=== PATIENT | female | born 1995 | race Hispanic/Latino ===

== ENCOUNTER 2019-12-25 11:01 | Emergency (ER) | payer OTHER, SELFPAY ==
--- NOTE | 2019-12-25 12:44 | EDPHYS ---
Physician Documentation [facility] Name: Brandy Calvo Age: 24 yrs Sex: Female : 1995 Arrival Date: 12/25/2019 Time: 11:03 Bed 16 Private MD: ED Physician Adrien Coates HPI: 12/24 11:39 This 24 yrs old Female presents to ER via Ambulatory with complaints of Sore jr8 Throat, Fever. 11:39 The patient presents with sore throat. The patient describes throat pain as constant, jr8 raw. Onset: The symptoms/episode began/occurred acutely, yesterday. Severity of symptoms: At their worst the symptoms were mild, in the emergency department the symptoms are unchanged. Modifying factors: The symptoms are alleviated by nothing, the symptoms are aggravated by swallowing. Associated signs and symptoms: Pertinent positives: earache. The patient has not experienced similar symptoms in the past. The patient has not recently seen a physician. 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 ROS: 11:39 Eyes: Negative for injury, pain, redness, and discharge, Neck: Negative for injury, jr8 pain, and swelling, Cardiovascular: Negative for chest pain, palpitations, and edema, Respiratory: Negative for shortness of breath, cough, wheezing, and pleuritic chest pain, Abdomen/GI: Negative for abdominal pain, nausea, vomiting, diarrhea, and constipation, Back: Negative for injury and pain, MS/Extremity: Negative for injury and deformity, Skin: Negative for injury, rash, and discoloration, Neuro: Negative for headache, weakness, numbness, tingling, and seizure. 11:39 ENT: Positive for ear pain, sore throat. Exam: 11:39 Eyes: Pupils equal round and reactive to light, extra-ocular motions intact. Lids and jr8 lashes normal. Conjunctiva and sclera are non-icteric and not injected. Cornea within normal limits. Periorbital areas with no swelling, redness, or edema. Neck: Trachea midline, no thyromegaly or masses palpated, and no cervical lymphadenopathy. Supple, full range of motion without nuchal rigidity, or vertebral point tenderness. No Meningismus. Cardiovascular: Regular rate and rhythm with a normal S1 and S2. No gallops, murmurs, or rubs. Normal PMI, no JVD. No pulse deficits. Respiratory: Lungs have equal breath sounds bilaterally, clear to auscultation and percussion. No rales, rhonchi or wheezes noted. No increased work of breathing, no retractions or nasal flaring. Abdomen/GI: Soft, non-tender, with normal bowel sounds. No distension or tympany. No guarding or rebound. No evidence of tenderness throughout. Back: No spinal tenderness. No costovertebral tenderness. Full range of motion. Skin: Warm, dry with normal turgor. Normal color with no rashes, no lesions, and no evidence of cellulitis. MS/ Extremity: Pulses equal, no cyanosis. Neurovascular intact. Full, normal range of motion. Neuro: Awake and alert, GCS 15, oriented to person, place, time, and situation. Cranial nerves II-XII grossly intact. Motor strength 5/5 in all extremities. Sensory grossly intact. Cerebellar exam normal. Normal gait. 11:39 ENT: External ear(s): are unremarkable, Ear canal(s): are normal, clear, TM's: erythema, that is mild, on the right, Examination of the other ear shows no obvious abnormality, Nose: External nose: no obvious acute abnormality, Nasal septum: is midline, Nasal mucosa: normal, Turbinates: are normal, Mouth: Lips: moist, Oral mucosa: pink and intact, moist, Gums: pink, Tongue: is moist, Posterior pharynx: Airway: patent, Tonsils: bilaterally enlarged, with erythema, with exudate, no ulcerations, Uvula: midline, non-edematous, no erythema, swelling, is not appreciated, erythema, that is mild. Vital Signs: 11:16 BP 112 / 77; Pulse 108; Resp 16; Temp 99.4(O); Pulse Ox 100% on R/A; Weight 56.7 kg; iw Height 5 ft. 2 in. (157.48 cm); Pain 5/10; 12:21 BP 112 / 78; Pulse 116; Resp 20; Temp 100.0; Pulse Ox 97% on R/A; jr10 11:16 Body Mass Index 22.86 (56.70 kg, 157.48 cm) MDM: 11:32 Patient medically screened. jr8 12:41 Data reviewed: vital signs, nurses notes, lab test result(s), and as a result, I will jr8 discharge patient. Data interpreted: Pulse oximetry: on room air is 97 %. Interpretation: normal. Counseling: I had a detailed discussion with the patient and/or guardian regarding: the historical points, exam findings, and any diagnostic results supporting the discharge/admit diagnosis, lab results, the need for outpatient follow up, a family practitioner, to return to the emergency department if symptoms worsen or persist or if there are any questions or concerns that arise at home. ED course: Negative strep and mono. No paratonsillar abscess noted. Most likely other bacteria. Will put on clinda . 12/24 11:23 Order name: Strep; Complete Time: 12:09 12/24 12:08 Order name: Throat Culture [facility] 12/24 12:09 Order name: [place] Screen Profile; Complete Time: 12:40 8 Administered Medications: 12:54 Drug: Tylenol 1000 mg Route: PO; jr10 Disposition: 17:40 Co-signature as Attending Physician, Adrien Coates MD I agree with the assessment and kdr plan of care. Disposition: 12/25/19 12:43 Discharged to Home. Impression: Acute pharyngitis due to other specified organisms. - Condition is Stable. - Discharge Instructions: Pharyngitis, Sore Throat. - Prescriptions for Clindamycin HCl 300 mg Oral Capsule - take 1 capsule by ORAL route every 6 hours for 10 days; 40 capsule. - Medication Reconciliation Form, Thank You Letter, Antibiotic Education, Prescription Opioid Use form. - Follow up: Private Physician; When: 2 - 3 days; Reason: Recheck today's complaints, Continuance of care, Re-evaluation by your physician. - Problem is new. - Symptoms have improved. Signatures: Dispatcher [employer] [facility] Adrien Coates MD MD kdr Williams, Irene, RN RN Ward Blackburn PA PA jr8 Rachana Mckeon RN RN jr10 Corrections: (The following items were deleted from the chart) 12:58 12:43 12/25/2019 12:43 Discharged to Home. Impression: Acute pharyngitis due to other jr10 specified organisms. Condition is Stable. Forms are Medication Reconciliation Form, Thank You Letter, Antibiotic Education, Prescription Opioid Use. Follow up: Private Physician; When: 2 - 3 days; Reason: Recheck today's complaints, Continuance of care, Re-evaluation by your physician. Problem is new. Symptoms have improved. jr8
--- NOTE | 2019-12-25 12:44 | ER ---
Nurse's Notes [facility] Name: Brandy Calvo Age: 24 yrs Sex: Female : 1995 Arrival Date: 12/25/2019 Time: 11:03 Bed 16 Private MD: Diagnosis: Acute pharyngitis due to other specified organisms Presentation: 12/24 11:16 Chief complaint: Patient states: right ear pain, tonsils are swollen and has pus iw pockets and pain when swallowing, started Sun/Th, low grade temp also. Coronavirus screen: Client denies travel out of the [place] in the last 14 days. Coronavirus screen: Patient denies a cough. Patient denies shortness of breath or difficulty breathing. Patient reports a measured and/or subjective temperature greater than 100.4F. Patient denies travel on a cruise ship or to a country the [facility] currently lists as an affected area. Patient denies contact with known and/or suspected case of COVID-19. Ebola Screen: Patient negative for fever greater than or equal to 101.5 degrees Fahrenheit, and additional compatible Ebola Virus Disease symptoms Patient denies exposure to infectious person. Patient denies travel to an Ebola-affected area in the 21 days before illness onset. No symptoms or risks identified at this time. Initial Sepsis Screen: Does the patient meet any 2 criteria? No. Patient's initial sepsis screen is negative. Does the patient have a suspected source of infection? No. Patient's initial sepsis screen is negative. Risk Assessment: Do you want to hurt yourself or someone else? Patient reports no desire to harm self or others. Onset of symptoms was December 21, 2019. 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 Screenin:37 Abuse screen: Denies threats or abuse. Denies injuries from another. Nutritional jr10 screening: No deficits noted. Tuberculosis screening: No symptoms or risk factors identified. Fall Risk None identified. Assessment: 11:35 General: Appears in no apparent distress. Behavior is calm, cooperative, appropriate jr10 for age. Pain: Complains of pain in sore throat and right ear pain. Respiratory: No deficits noted. Airway is patent Respiratory effort is even, unlabored, Respiratory pattern is regular, symmetrical, Breath sounds are clear bilaterally. GI: Patient currently denies diarrhea, nausea, vomiting, denies loss of taste and smell. EENT: Throat is reddened has patchy exudate has enlarged tonsils right > left. Derm: No deficits noted. Vital Signs: 11:16 BP 112 / 77; Pulse 108; Resp 16; Temp 99.4(O); Pulse Ox 100% on R/A; Weight 56.7 kg; iw Height 5 ft. 2 in. (157.48 cm); Pain 5/10; 12:21 BP 112 / 78; Pulse 116; Resp 20; Temp 100.0; Pulse Ox 97% on R/A; jr10 11:16 Body Mass Index 22.86 (56.70 kg, 157.48 cm) ED Course: 11:03 Patient arrived in ED. as 11:18 Triage completed. iw 11:20 Rachana Mckeon, RN is Primary Nurse. jr10 11:32 Ward Blackburn [facility] jr8 11:32 Adrien Coates MD is Attending Physician. jr8 11:37 Patient has correct armband on for positive identification. Bed in low position. Call jr10 light in reach. Side rails up X 1. Pulse ox on. NIBP on. 11:37 No provider procedures requiring assistance completed. Patient did not have IV access jr10 during this emergency room visit. Administered Medications: 12:54 Drug: Tylenol 1000 mg Route: PO; jr10 Outcome: 12:43 Discharge ordered by . jr8 12:57 Discharged to home ambulatory. jr10 12:57 Condition: good 12:57 Discharge instructions given to patient, Instructed on discharge instructions, follow up and referral plans. Demonstrated understanding of instructions, follow-up care, medications, Prescriptions given X 1. 12:58 Patient left the ED. jr10 Signatures: Teressa Nicholas Irene, RN RN Ward Blackburn PA PA jr8 Rachaan Mckeon RN RN jr10 Corrections: (The following items were deleted from the chart) 11:19 11:16 BP 112 / 77; Pulse 108bpm; Resp 16bpm; Pulse Ox 100% RA; Temp 99.4F Oral; iw iw
[2019-12-25] MEDS ORDERED: ACETAMINOPHEN 500 MG TAB ONE (12:59)
[2019-12-25 13:05] VITALS: BP 112/78; TEMP 100; O2SAT 97
== END 2019-12-25 12:58 | disposition home or self-care (01) ==
LOC: ER 11:01
DX: J02.8 Acute pharyngitis due to other specified organisms (principal)
CPT/HCPCS: 36415; 86308; 87070; 87081; 99283

== ENCOUNTER 2020-06-20 14:02 | Emergency (ER) | payer SELFPAY ==
--- OUTSIDE RECORDS SUMMARY | 2020-06-20 14:04 | XMS REPORT | Continuity of Care Document ---
:1995 Author Organization [facility] t Address [address] [place] [address] Care Team Providers Name Role Phone Beverly Barriga Attending Clinician Problems This patient has no known problems. Allergies, Adverse Reactions, Alerts This patient has no known allergies or adverse reactions. Medications This patient has no known medications. Procedures This patient has no known procedures. Encounters Start End Encounter Admission Attending Care Care Encounter Source Date/Time Date/Time Type Type Clinicians Facility Department ID 2019-08-13 2019-08-13 Office DENICE Vadles [id number] 19 13:14:10 13:49:09 Visit Yonny Paul OIM CONSULTANT [id number] [facility] [id number] MATERNAL [id number] & CHILD [address] [place] [address] Results This patient has no known results.
[2020-06-20 16:59] LABS: Urine Bacteria <20 /HPF (<20); Urine RBC NONE SEEN /HPF (NONE SEEN)
[2020-06-20 17:29] LABS: Urine Blood NEGATIVE (NEG); Urine Glucose NEGATIVE (NEG); Urine Protein NEGATIVE (NEG); Urine pH 7.5 (5.0-7.0)
[2020-06-20 17:55] LABS: Absolute Lymphocytes (CBC) 2.3 K/uL (0.7-4.9); Basophils % 0.5 % (0-1.3); Hematocrit 37.7 % (36.0-45.0); Lymphocytes % 23.3 % (15.3-44.8); MPV 8.2 fL (7.6-11.3); RBC Red Blood Cell Count 4.41 M/uL (3.86-4.86)
--- NOTE | 2020-06-20 18:06 | RAD REPORT ---
EXAM DESCRIPTION: CT - Stone Protocol - 06/20/2020 5:53 pm CLINICAL HISTORY: PAIN, right lower quadrant pain for 3 days, nausea COMPARISON: No comparisons TECHNIQUE: Axial 3 mm thick images were obtained without oral or IV contrast. The [id number] span s the entirety of the system including uppermost abdomen and lung bases. All CT scans are performed using dose optimization technique as appropriate and may include automated exposure control or mA/KV adjustment according to patient size. FINDINGS: No hydronephrosis is present and no obstructing ureteral calculi. No suspicious renal mass es. Isodense masses and pyelonephritis are not excluded on a stone protocol CT scan. No significant a drenal finding. No urinary bladder suspicious finding. Uterus and left ovary are unremarkable. Right ovary contains a 4.0 centimeter cyst. No calcification or fat component. This is homogeneous in attenuation. No cyst rupture or hemorrhage identified. Imaged portions of the liver, spleen and pancreas show no suspicious findings on non-contrast imaging . No gallbladder or biliary tree abnormality identified. No suspicious bowel findings. Stool is present filling but not dilating the entirety of the colon. Ap pendix is normal. No mass or bulky lymphadenopathy. A few small mesenteric lymph nodes are present. No free air or pneu matosis. Trace physiologic quantity of free fluid in the cul de sac. No significant bony abnormality. IMPRESSION: A 4 cm right ovarian cyst is present and would be a potential source for pain. No cyst r upture or hemorrhage. Stool is present filling but not dilating the entirety of the colon. No colitis or other acute GI pro cess seen. No acute finding. Isodense masses and pyelonephritis cannot be excluded on the stone protocol stud yariel
[2020-06-20 18:12] LABS: BUN Blood Urea Nitrogen 6 mg/dL (7-18); Bicarbonate 28 mmol/L (21-32); Glucose Level 77 mg/dL (74-106); Potassium 3.9 mmol/L (3.5-5.1); Sodium Level 141 mmol/L (136-145)
--- NOTE | 2020-06-20 18:14 | ER ---
Nurse's Notes [facility] Name: Brandy Calvo Age: 24 yrs Sex: Female : 1995 Arrival Date: 06/20/2020 Time: 14:04 Bed 18 Private MD: Diagnosis: Unspecified ovarian cysts Presentation: 06/20 14:06 Chief complaint: Patient states: RLQ pain x 3 days. Reports nausea, dry mouth, ca1 constipation. Denies fever. When the pain started, my side hurts when I pee. Coronavirus screen: Client denies travel out of the [place] in the last 14 days. nausea, Client presents with at least one sign or symptom that may indicate coronavirus-19. Standard/surgical mask placed on the client. Provider contacted for isolation considerations. Ebola Screen: Patient negative for fever greater than or equal to 101.5 degrees Fahrenheit, and additional compatible Ebola Virus Disease symptoms Patient denies exposure to infectious person. Patient denies travel to an Ebola-affected area in the 21 days before illness onset. No symptoms or risks identified at this time. Initial Sepsis Screen: Does the patient meet any 2 criteria? No. Patient's initial sepsis screen is negative. Does the patient have a suspected source of infection? No. Patient's initial sepsis screen is negative. Risk Assessment: Do you want to hurt yourself or someone else? Patient reports no desire to harm self or others. Onset of symptoms was June 20, 2020. 14:06 Method Of Arrival: Ambulatory ca1 14:06 Acuity: BILL 3 ca1 Triage Assessment: 17:15 General: Appears in no apparent distress. uncomfortable, Behavior is calm, cooperative, jd3 appropriate for age. 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 - Social history:: Smoking status: Patient denies any tobacco usage or history of. Screenin:15 Abuse screen: Denies threats or abuse. Nutritional screening: No deficits noted. jd3 Tuberculosis screening: No symptoms or risk factors identified. Fall Risk Ambulatory Aid- None/Bed Rest/Nurse Assist (0 pts). Gait- Normal/Bed Rest/Wheelchair (0 pts) Mental Status- Oriented to own ability (0 pts). Total Scruggs Fall Scale indicates No Risk (0-24 pts). Assessment: 17:15 General: Appears in no apparent distress. uncomfortable, Behavior is calm, cooperative, jd3 appropriate for age. Pain: Complains of pain in suprapubic area Quality of pain is described as sharp. Neuro: Level of Consciousness is awake, alert, obeys commands, Oriented to person, place, time, situation. Cardiovascular: Denies chest pain, Capillary refill < 3 seconds Patient's skin is warm and dry. Respiratory: Airway is patent Respiratory effort is even, unlabored, Respiratory pattern is regular, symmetrical, Denies cough, shortness of breath. GI: Abdomen is flat, non-distended, Abd is soft and non tender X 4 quads. Reports lower abdominal pain, nausea. : No signs and/or symptoms were reported regarding the genitourinary system. EENT: No signs and/or symptoms were reported regarding the EENT system. Derm: Skin is intact, Skin is dry, Skin is normal, Skin temperature is warm. Musculoskeletal: Circulation, motion, and sensation intact. Range of motion: intact in all extremities. 18:00 Reassessment: Patient appears in no apparent distress at this time. No changes from jd3 previously documented assessment. Patient and/or family updated on plan of care and expected duration. Pain level reassessed. Patient is alert, oriented x 3, equal unlabored respirations, skin warm/dry/pink. 18:40 Reassessment: Patient appears in no apparent distress at this time. Patient and/or jd3 family updated on plan of care and expected duration. Pain level reassessed. Patient is alert, oriented x 3, equal unlabored respirations, skin warm/dry/pink. pt reported understanding of discharge instructions, even and steady gait upon discharge. Vital Signs: 14:06 BP 108 / 83; Pulse 83; Resp 16 S; Temp 97.8(TE); Pulse Ox 100% on R/A; Weight 57.61 kg ca1 (R); Height 5 ft. 2 in. (157.48 cm) (R); Pain 4/10; 18:37 BP 111 / 73; Pulse 85; Resp 16 S; Pulse Ox 100% on R/A; jd3 14:06 Body Mass Index 23.23 (57.61 kg, 157.48 cm) ca1 ED Course: 14:04 Patient arrived in ED. ag5 14:09 Triage completed. ca1 14:09 Arm band placed on right wrist. ca1 16:48 Urine Microscopic Only Sent. ca1 17:02 Maria Alejandra Diaz FNP-C is [facility]. kb 17:02 Davidson Moran MD is Attending Physician. kb 17:30 Patient has correct armband on for positive identification. Bed in low position. Call jd3 light in reach. Side rails up X 1. Pulse ox on. NIBP on. 17:30 Arm band placed on. jd3 17:46 Inserted saline lock: 20 gauge in right antecubital area, using aseptic technique. dh4 Blood collected. 17:53 CT Stone Protocol In Process Unspecified. EDMS 18:30 Rocco Mathews, RN is Primary Nurse. jd3 18:40 No provider procedures requiring assistance completed. IV discontinued, intact, jd3 bleeding controlled, No redness/swelling at site. Pressure dressing applied. Administered Medications: 18:36 Drug: TORadol 30 mg Route: IVP; Site: right antecubital; jd3 18:42 Follow up: Response: No adverse reaction jd3 Outcome: 18:13 Discharge ordered by . kb 18:42 Patient left the ED. jd3 18:42 Discharged to home ambulatory. jd3 18:42 Condition: stable 18:42 Discharge instructions given to patient, Instructed on discharge instructions, follow up and referral plans. medication usage, Demonstrated understanding of instructions, follow-up care, medications, Prescriptions given X 1. Signatures: Dispatcher [employer] EDAR Maria Alejandra Diaz FNP-C FNP-Ckb Davies, Jonathon, RN RN jd3 Tricia Gaona RN RN ca1 Mirna Knox [facility] [place] Cat 4 Corrections: (The following items were deleted from the chart) 20:40 20:39 Patient has correct armband on for positive identification. Bed in low position. jd3 Call light in reach. Side rails up X 1. jd3 20:40 20:39 Pulse ox on. NIBP on. jd3 jd3
--- NOTE | 2020-06-20 18:14 | EDPHYS ---
Physician Documentation [facility] Name: Brandy Calvo Age: 24 yrs Sex: Female : 1995 Arrival Date: 06/20/2020 Time: 14:04 Bed 18 Private MD: ED Physician Davidson Moran HPI: 06/20 17:53 This 24 yrs old Female presents to ER via Ambulatory with complaints of kb Abdominal Pain. 17:53 The patient presents with abdominal pain right lower quadrant. Onset: The kb symptoms/episode began/occurred 3 day(s) ago. The symptoms do not radiate. Associated signs and symptoms: none. The symptoms are described as constant. Modifying factors: The symptoms are alleviated by nothing, the symptoms are aggravated by walking. Severity of pain: At its worst the pain was moderate in the emergency department the pain is unchanged. The patient has not experienced similar symptoms in the past. The patient has not recently seen a physician. GUIDE ESCORT: 14:09 LMP 05/23/2020 ca1 Historical: - Allergies: 14:09 No Known Allergies; ca1 - Home Meds: 14:09 None [Active]; ca1 - PMHx: 14:09 None; ca1 - PSHx: 14:09 None; ca1 - Immunization history:: Flu vaccine is not up to date. - Social history:: Smoking status: Patient denies any tobacco usage or history of. ROS: 17:52 Constitutional: Negative for fever, chills, and weight loss, Cardiovascular: Negative kb for chest pain, palpitations, and edema, Respiratory: Negative for shortness of breath, cough, wheezing, and pleuritic chest pain, Back: Negative for injury and pain, MS/Extremity: Negative for injury and deformity, Skin: Negative for injury, rash, and discoloration, Neuro: Negative for headache, weakness, numbness, tingling, and seizure. 17:52 Abdomen/GI: Positive for abdominal pain. Exam: 17:53 Constitutional: This is a well developed, well nourished patient who is awake, alert, kb and in no acute distress. Head/Face: Normocephalic, atraumatic. Chest/axilla: Normal chest wall appearance and motion. Nontender with no deformity. No lesions are appreciated. Cardiovascular: Regular rate and rhythm with a normal S1 and S2. No gallops, murmurs, or rubs. Normal PMI, no JVD. No pulse deficits. Respiratory: Lungs have equal breath sounds bilaterally, clear to auscultation and percussion. No rales, rhonchi or wheezes noted. No increased work of breathing, no retractions or nasal flaring. Abdomen/GI: Soft, non-tender, with normal bowel sounds. No distension or tympany. No guarding or rebound. No evidence of tenderness throughout. Back: No spinal tenderness. No costovertebral tenderness. Full range of motion. Skin: Warm, dry with normal turgor. Normal color with no rashes, no lesions, and no evidence of cellulitis. MS/ Extremity: Pulses equal, no cyanosis. Neurovascular intact. Full, normal range of motion. Neuro: Awake and alert, GCS 15, oriented to person, place, time, and situation. Cranial nerves II-XII grossly intact. Motor strength 5/5 in all extremities. Sensory grossly intact. Cerebellar exam normal. Normal gait. Vital Signs: 14:06 BP 108 / 83; Pulse 83; Resp 16 S; Temp 97.8(TE); Pulse Ox 100% on R/A; Weight 57.61 kg ca1 (R); Height 5 ft. 2 in. (157.48 cm) (R); Pain 4/10; 18:37 BP 111 / 73; Pulse 85; Resp 16 S; Pulse Ox 100% on R/A; jd3 14:06 Body Mass Index 23.23 (57.61 kg, 157.48 cm) ca1 MDM: 17:02 Patient medically screened. kb 17:53 Data reviewed: vital signs, nurses notes. Data interpreted: Pulse oximetry: on room air kb is 100 %. Interpretation: normal. 18:13 Counseling: I had a detailed discussion with the patient and/or guardian regarding: the kb historical points, exam findings, and any diagnostic results supporting the discharge/admit diagnosis, lab results, radiology results, the need for outpatient follow up, an OB/Gyne specialist, to return to the emergency department if symptoms worsen or persist or if there are any questions or concerns that arise at home. 06/20 15:10 Order name: Urine Microscopic Only; Complete Time: 17:02 kb 06/20 16:35 Order name: Urine Dipstick--Ancillary (enter results) eb 06/20 16:35 Order name: Urine --Ancillary (enter results) eb 06/20 16:36 Order name: Urine Dipstick-Ancillary; Complete Time: 17:30 EDMS 06/20 16:36 Order name: Urine --Ancillary; Complete Time: 17:30 EDMS 06/20 17:09 Order name: Basic Metabolic Panel; Complete Time: 18:12 kb 06/20 15:10 Order name: Urine Test (obtain specimen); Complete Time: 16:24 kb 06/20 15:10 Order name: Urine Dipstick-Ancillary (obtain specimen); Complete Time: 16:24 kb 06/20 17:09 Order name: CBC with Diff; Complete Time: 18:12 kb 06/20 17:09 Order name: IV Saline Lock; Complete Time: 17:47 kb 06/20 17:09 Order name: Labs collected and sent; Complete Time: 17:47 kb 06/20 17:09 Order name: CT Stone Protocol; Complete Time: 18:07 kb Administered Medications: 18:36 Drug: TORadol 30 mg Route: IVP; Site: right antecubital; jd3 18:42 Follow up: Response: No adverse reaction jd3 Disposition: 06/21 07:03 Co-signature as Attending Physician, Davidson Moran MD. rn Disposition: 06/20/20 18:13 Discharged to Home. Impression: Unspecified ovarian cysts. - Condition is Stable. - Discharge Instructions: Ovarian Cyst, [id number]. - Prescriptions for Ibuprofen 600 mg Oral Tablet - take 1 tablet by ORAL route every 6 hours As needed take with food; 30 tablet. - Medication Reconciliation Form, Thank You Letter, Antibiotic Education, Prescription Opioid Use, Work release form form. - Follow up: Emergency Department; When: As needed; Reason: Worsening of condition. Follow up: Private Physician; When: 2 - 3 days; Reason: Recheck today's complaints, Continuance of care, Re-evaluation by your physician. Signatures: Dispatcher [employer] [facility] Maria Alejandra Diaz, SAEED CAMERONP-Davidson Weaver MD MD rn Davies, Jonathon, RN RN jd3 AcTricia sibley RN RN ca1 Corrections: (The following items were deleted from the chart) 06/20 18:13 18:13 Counseling: I had a detailed discussion with the patient and/or guardian matthew regarding: the historical points, exam findings, and any diagnostic results supporting the discharge/admit diagnosis, lab results, radiology results, the need for outpatient follow up, a family practitioner, to return to the emergency department if symptoms worsen or persist or if there are any questions or concerns that arise at home, matthew 18:42 18:13 06/20/2020 18:13 Discharged to Home. Impression: Unspecified ovarian cysts. jd3 Condition is Stable. Forms are Medication Reconciliation Form, Thank You Letter, Antibiotic Education, Prescription Opioid Use. Follow up: Emergency Department; When: As needed; Reason: Worsening of condition. Follow up: Private Physician; When: 2 - 3 days; Reason: Recheck today's complaints, Continuance of care, Re-evaluation by your physician. kb
[2020-06-20] MEDS ORDERED: KETOROLAC 30 MG/ML INJ ONE (18:46)
[2020-06-20 18:47] VITALS: TEMP 97.8; O2SAT 100
[2020-06-20 18:48] VITALS: BP 111/73
== END 2020-06-20 18:42 | disposition home or self-care (01) ==
LOC: ER 14:02
DX: N83.209 Unspecified ovarian cyst, unspecified side (principal)
CPT/HCPCS: 36415; 74176; 76377; 80048; 81003; 81015; 81025; 85025; 96374; 99284